=== PATIENT | female | born 2000 | race African-American/Black ===

== ENCOUNTER 2020-07-27 20:24 | Emergency (ER) | payer MEDICAID ==
[~2020-07-27] VITALS: Ht 160 cm; Wt 88.4 kg
[2020-07-27 21:35] VITALS: BP 118/76
[2020-07-27] MEDS ORDERED: FAMOTIDINE 20MG TABLET PO ONE (22:30)
[2020-07-27] MEDS ORDERED: DIPHENHYDRAMINE 25MG CAPSULE PO ONE (22:30)
[2020-07-27] MEDS ORDERED: CETI10TA10 MT (22:33)
[2020-07-27] MEDS ORDERED: TC025C15 TP (22:33)
== END 2020-07-27 23:13 | disposition home or self-care (01) ==
LOC: ER 21:15
DX: R21 Rash and other nonspecific skin eruption (principal); L29.9 Pruritus, unspecified; T78.1XXD Other adverse food reactions, not elsewhere classified, subsequent encounter; X58.XXXD Exposure to other specified factors, subsequent encounter
CPT/HCPCS: 81025; 99283; Q0163

== ENCOUNTER 2020-10-05 23:43 | Emergency (ER) | payer MEDICAID ==
[~2020-10-05] VITALS: Ht 162.6 cm; Wt 82.4 kg
[~2020-10-05 23:43] MED LIST: CETI10TA10 MT; TC025C15 TP
[2020-10-06] MEDS ORDERED: ACETAMINOPHEN 325MG TABLET PO ONE (00:30)
[2020-10-06] MEDS ORDERED: ACET-2708 MT (00:46)
[2020-10-06] MEDS ORDERED: NAPR-1176 MT (01:27)
[2020-10-06 01:49] VITALS: BP 130/89
== END 2020-10-06 01:51 | disposition home or self-care (01) ==
LOC: ER 23:43
DX: U07.1 COVID-19 (principal); J02.9 Acute pharyngitis, unspecified
CPT/HCPCS: 81025; 99283; C9803; U0003; U0005

== ENCOUNTER 2022-04-14 10:23 | Emergency (ER) | payer MEDICAID ==
[~2022-04-14 10:23] MED LIST changes: +ACET-2708 MT; -CETI10TA10 MT; +CETI10TA11 MT; +NAPR-1176 MT
== END 2022-04-14 11:53 | disposition left against medical advice (07) ==
LOC: ER 10:23
DX: Z53.21 Procedure and treatment not carried out due to patient leaving prior to being seen by health care provider (principal)

== ENCOUNTER 2022-08-30 01:55 | Emergency (ER) | payer MEDICAID ==
[~2022-08-30] VITALS: Ht 160 cm; Wt 63.5 kg
[2022-08-30 02:05] VITALS: BP 120/70; O2SAT 100
[2022-08-30] MEDS ORDERED: KETOROLAC 30MG/ML VIAL IM ONE (03:00)
[2022-08-30] MEDS ORDERED: IBUP-2030 MT (03:12)
[2022-08-30] MEDS ORDERED: AMOX1TAB16 MT (03:12)
[2022-08-30] MEDS ORDERED: AMOXICILLIN/POTASSIUM CLAVULANATE 875/125MG TAB PO ONE (03:15)
[2022-08-30 03:37] VITALS: PULSE 91; RESP 18; TEMP 99.1
== END 2022-08-30 03:37 | disposition home or self-care (01) ==
LOC: ER 02:08
DX: K08.89 Other specified disorders of teeth and supporting structures (principal); Z79.899 Other long term (current) drug therapy
CPT/HCPCS: 81025; 96372; 99283; J1885; Z7610

== ENCOUNTER 2023-08-02 14:26 | Emergency (ER) | payer MEDICAID ==
[~2023-08-02] VITALS: Ht 160 cm; Wt 68.0 kg
[~2023-08-02 14:26] MED LIST changes: +AMOX1TAB16 MT; +IBUP-2030 MT
[2023-08-02 14:30] VITALS: BP 118/58; PULSE 75; RESP 15; TEMP 98.3; O2SAT 99
[2023-08-02 15:05] LABS: BASOPHILS % 1.3 % (0.0-2.0); EOSINOPHILS % 1.5 % (0.0-5.0); HEMATOCRIT. 35.7 % (36.0-48.0); HEMOGLOBIN. 12.1 g/dL (12.0-16.0); LYMPHOCYTES % 33.6 % (20.0-50.0); MEAN CORPUSCULAR HEMOGLOBIN 31.6 pg (28.0-32.0); MEAN CORPUSCULAR HGB CONC 33.9 g/dL (31.0-37.0); MEAN CORPUSCULAR VOLUME 93.2 fL (81.0-99.0); MEAN PLATELET VOLUME 8.9 fl (7.4-10.4); MONOCYTES % 6.3 % (2.0-8.0); NEUTROPHILS % 57.3 % (40.0-76.0); PLATELET 237 x1000/uL (130-400); RED BLOOD CELL COUNT 3.83 mill/uL (4.2-5.4); RED CELL DISTRIBUTION WIDTH 12.6 % (11.6-14.6); WHITE BLOOD COUNT 5.7 x1000/uL (4.5-11.0)
== END 2023-08-02 17:01 | disposition home or self-care (01) ==
LOC: ER 14:26
DX: N93.9 Abnormal uterine and vaginal bleeding, unspecified (principal); Z79.899 Other long term (current) drug therapy
CPT/HCPCS: 81025; 85025; 86850; 86900; 86901; 36415; 99283; Z7610

== ENCOUNTER 2023-12-25 12:50 | Emergency (ER) | payer MEDICAID ==
[~2023-12-25] VITALS: Ht 160 cm; Wt 71.7 kg
[2023-12-25 12:55] VITALS: TEMP 98.8; O2SAT 99
[2023-12-25] MEDS ORDERED: CETI10CA2 MT (14:09)
[2023-12-25] MEDS: DEXAMETHASONE 10 MG/ML VIAL PO ONE (14:23)
[2023-12-25 14:30] VITALS: BP 110/77; PULSE 82; RESP 18; O2SAT 99
== END 2023-12-25 14:37 | disposition home or self-care (01) ==
LOC: ER 12:50
DX: L29.9 Pruritus, unspecified (principal); Z79.899 Other long term (current) drug therapy
CPT/HCPCS: 99283; 81025; J1100